=== PATIENT | female | born 2000 | race Caucasian/White ===

== ENCOUNTER 2024-05-22 09:38 | Inpatient (IN) | payer OTHER ==
[~2024-05-22] VITALS: Ht 177.8 cm; Wt 112.9 kg
[2024-05-22 10:02] VITALS: BP 128/71; O2SAT 96
[2024-05-22] MEDS ORDERED: PRENTAB9 PO (10:15)
[2024-05-22] MEDS ORDERED: CARBOPROST TROMETHAMINE 250 MCG/ML AMP IM PRN (10:15)
[2024-05-22] MEDS ORDERED: LEVO25TA5 PO (10:15)
[2024-05-22] MEDS ORDERED: METHYLERGONOVINE MALEATE 0.2MG/ML 1ML VIAL IM PRN (10:15)
[2024-05-22] MEDS ORDERED: TRANEXAMIC ACID INJection 1,000 MG in NS 100 ML IV PRN (10:15)
[2024-05-22] MEDS ORDERED: OXYTOCIN INJ 10UNITS/ML 1ML VIAL IV PRN (10:15)
[2024-05-22] MEDS ORDERED: LR 1,000 ML IV SCH (10:15)
[2024-05-22] MEDS ORDERED: HOME MED LIST COMPLETE! XX SCH (10:20)
[2024-05-22 10:46] LABS: HEMATOCRIT 31.4 % (36.0-47.0); HEMOGLOBIN 10.3 g/dl (12.0-15.5); MEAN CORPUSCULAR HEMOGLOBIN 31.5 pg (27.0-33.0); MEAN CORPUSCULAR HGB CONC 32.8 g/dl (32.0-36.5); PLATELET COUNT, AUTOMATED 321 10^3/uL (150-450); RED BLOOD COUNT 3.27 10^6/uL (4.00-5.40); WHITE BLOOD COUNT 10.1 10^3/uL (4.0-10.0)
[2024-05-22 11:55] LABS: HEPATITIS C VIRUS ABY INDEX < 0.02 INDEX (<0.8)
[2024-05-22 12:04] VITALS: BP 125/74
[2024-05-22] MEDS: miSOPROStol 25MCG 1/4 TABLET PO ONE (12:04)
[2024-05-22 13:11] VITALS: BP 114/75
[2024-05-22 14:18] VITALS: BP 119/71
[2024-05-22 15:42] VITALS: BP 119/73
[2024-05-22] MEDS: LIDOCAINE 1% MDV 20ML VIAL INFIL PRN (16:15)
[2024-05-22] MEDS: OXYTOCIN DRIP 30 UNITS in IV 1 EA IV PRN ×2 (16:15→16:44)
[2024-05-22] MEDS ORDERED: ACETAMINOPHEN 325 MG TAB PO PRN (17:00)
[2024-05-22] MEDS ORDERED: DOCUSATE SODIUM 100MG CAPSULE PO PRN (17:00)
[2024-05-22] MEDS ORDERED: METHYLERGONOVINE MALEATE 0.2 MG TAB PO PRN (17:00)
[2024-05-22] MEDS ORDERED: ACETAMINOPHEN 500 MG TAB PO PRN (17:00)
[2024-05-22] MEDS ORDERED: IBUPROFEN 800 MG TAB PO PRN (17:00)
[2024-05-22 18:38] VITALS: BP 136/89; O2SAT 99
[2024-05-22] MEDS: DIBUCAINE 1% OINTMENT 30GM TOP PRN (20:09)
[2024-05-22] MEDS: IBUPROFEN 600MG TAB PO PRN (21:59)
[2024-05-23] MEDS: LEVOTHYROXINE 37.5MCG PER 1/2TAB (0.0375MG) PO SCH (05:55)
[2024-05-23 06:00] VITALS: BP 123/60; O2SAT 97
[2024-05-23] MEDS: PRENATAL VITAMINS CHEWABLE TABLET PO SCH (12:07)
[2024-05-23] MEDS: FLUZONE VACCINE TRIVALENT PF(2024-25) 0.5ML SYRINGE IM.IMMUN ONE (14:17)
[2024-05-23] MEDS: MEASLES,MUMPS,RUBELLA VACCINE INJ (MMR-II) SC.IMMUN ONE (14:19)
== END 2024-05-23 15:50 | disposition home or self-care (01) | DRG 807 ==
LOC: M LDI 09:38 → M OBS 18:30
PROVIDERS: ADMIT Advanced Practice Midwife; ATTEND Advanced Practice Midwife
PROC: 10E0XZZ Delivery of Products of Conception, External Approach (ICD-10-PCS; principal; 2024-05-22)
PROC: 0KQM0ZZ Repair Perineum Muscle, Open Approach (ICD-10-PCS; 2024-05-22)
PROC: 10907ZC Drainage of Amniotic Fluid, Therapeutic from Products of Conception, Via Natural or Artificial Opening (ICD-10-PCS; 2024-05-22)
PROC: 3E0P7GC Introduction of Other Therapeutic Substance into Female Reproductive, Via Natural or Artificial Opening (ICD-10-PCS; 2024-05-22)
DX: O70.1 Second degree perineal laceration during delivery (principal); Z37.0 Single live birth; Z3A.40 40 weeks gestation of pregnancy; O77.0 Labor and delivery complicated by meconium in amniotic fluid

== ENCOUNTER → 2025-02-26 | Outpatient (REF) | payer OTHER ==
[~2025-02-26] MED LIST: LEVO25TA5 PO; PRENTAB9 PO
== END ==
LOC: M PLALAB 10:08
PROVIDERS: ATTEND Advanced Practice Midwife
DX: Z34.81 Encounter for supervision of other normal pregnancy, first trimester (principal)

== ENCOUNTER → 2025-03-05 | Outpatient (CLI) | payer OTHER ==
[2025-03-05 14:22] LABS: PLATELET COUNT, AUTOMATED 332 10^3/uL (150-450)
[2025-03-05 14:32] LABS: LDH LACTATE DEHYDROGENASE 103 U/L (120-246)
[2025-03-05 14:33] LABS: ALT/SGPT 11 U/L (7.0-40); AST/SGOT 14 U/L (<34); CREATININE FOR GFR 0.60 MG/DL (0.55-1.30); FREE T4 1.08 NG/DL (0.89-1.76); GLOMERULAR FILTRATION RATE > 90.0 (>60)
[2025-03-05 14:43] LABS: TOTAL PROTEIN,RANDOM URINE 13.9 MG/DL (0.0-14.0)
[2025-03-05 15:09] LABS: HIV 1&2 SCREEN NEGATIVE (NEGATIVE)
[2025-03-05 15:52] LABS: HEPATITIS C VIRUS ABY INDEX < 0.02 INDEX (<0.8)
[2025-03-05 16:05] LABS: Trichomonas vaginalis (AMP) NOT DETECTED (NEGATIVE)
[2025-03-05 16:29] LABS: GC DNA AMPLIFICATION NEGATIVE (NEGATIVE)
== END ==
LOC: M PLALAB 10:20
PROVIDERS: ATTEND Advanced Practice Midwife
DX: Z34.81 Encounter for supervision of other normal pregnancy, first trimester (principal)

== ENCOUNTER → 2025-04-24 | Outpatient (REF) | payer OTHER | LOC: M SFHCWAGY 17:04 | PROVIDERS: ATTEND Obstetrics & Gynecology | DX: Z34.91 Encounter for supervision of normal pregnancy, unspecified, first trimester (principal) ==

== ENCOUNTER → 2025-05-08 | Outpatient (CLI) | payer OTHER | LOC: M WHC 14:39 | PROVIDERS: ATTEND Obstetrics & Gynecology | DX: Z34.82 Encounter for supervision of other normal pregnancy, second trimester (principal) ==

== ENCOUNTER → 2025-06-09 | Outpatient (CLI) | payer OTHER | LOC: M WHC 13:00 | PROVIDERS: ATTEND Student in an Organized Health Care Education/Training Program | DX: Z34.82 Encounter for supervision of other normal pregnancy, second trimester (principal); Z3A.26 26 weeks gestation of pregnancy ==